=== PATIENT | female | born 1935 | race Caucasian/White ===

== ENCOUNTER → 2018-10-22 | Outpatient (CLI) | payer MEDICARE ==
[~2018-10-22] MED LIST: ASPI81CH PO; Coumadin5 MG PO; HYDACE5 PO; Lovenox120 MG/0.8 SC; MULVITMINF; NIAC500; TOCO400
== END ==
LOC: LAB SHORT 09:24 → LAB 09:24
DX: N39.0 Urinary tract infection, site not specified (principal)
CPT/HCPCS: 87077; 87086; 87186

== ENCOUNTER → 2020-08-01 | Outpatient (CLI) | payer MEDICARE | LOC: LAB SHORT 08:50 → LAB 08:50 | DX: R30.0 Dysuria (principal); Z88.0 Allergy status to penicillin | CPT/HCPCS: 87077; 87086; 87186 ==

== ENCOUNTER → 2020-08-24 | Outpatient (CLI) | payer MEDICARE ==
[2020-08-24 12:08] LABS: Source, Urine Clean Catch
[2020-08-24 12:43] LABS: Specific Gravity, Urine 1.005 (1.003-1.022)
[2020-08-24 12:44] LABS: Appearance, Urine Clear (Clear); Bilirubin, Urine Neg (Neg); Blood, Urine Neg (Neg); Color, Urine Yellow (P-Yellow); Glucose Qualitative, Urine Neg (Normal); Ketones, Urine Neg (Neg); Leukocyte Esterase, Urine Neg (Neg); Nitrite, Urine Neg (Neg); Protein, Urine Neg (Neg); Urobilinogen, Urine NORM (Normal)
== END | disposition home or self-care (01) ==
LOC: LAB SHORT 10:50 → LAB 10:50
PROVIDERS: Family Medicine
DX: R30.9 Painful micturition, unspecified (principal)
CPT/HCPCS: 81003; 87086

== ENCOUNTER → 2020-11-07 | Outpatient (CLI) | payer MEDICARE | LOC: LAB SHORT 11:40 → LAB 11:40 | DX: D48.5 Neoplasm of uncertain behavior of skin (principal); L57.0 Actinic keratosis; I78.1 Nevus, non-neoplastic; Z88.0 Allergy status to penicillin | CPT/HCPCS: 88305 ==

== ENCOUNTER → 2021-02-21 | Outpatient (CLI) | payer MEDICARE ==
[2021-02-21 15:15] LABS: Source, Urine Clean Catch
[2021-02-21 15:41] LABS: Appearance, Urine Cloudy (Clear); Color, Urine Yellow (P-Yellow); Leukocyte Esterase, Urine 2+ (Neg); Nitrite, Urine Pos (Neg)
[2021-02-21 15:42] LABS: Bacteria Few /hpf; Bilirubin, Urine Neg (Neg); Blood, Urine Trace (Neg); Glucose Qualitative, Urine Neg (Normal); Ketones, Urine Neg (Neg); Protein, Urine Neg (Neg); Red Blood Cells, Urine 0-2 /hpf (0-2); Squamous Epithelial Cells Few /hpf (Few); Urobilinogen, Urine NORM (Normal)
== END | disposition home or self-care (01) ==
LOC: LAB SHORT 15:05 → LAB 15:05
PROVIDERS: Family Medicine
DX: N39.0 Urinary tract infection, site not specified (principal); R31.9 Hematuria, unspecified
CPT/HCPCS: 81001

== ENCOUNTER 2022-09-01 17:52 | Observation (INO) | payer MEDICARE ==
[~2022-09-01] VITALS: Ht 165.1 cm; Wt 68.9 kg
[2022-09-01 18:28] LABS: BASOPHILS ABSOLUTE AUTO 0.06 K/mm3 (0.00-0.23); BASOPHILS PERCENT AUTO 1 % (0-2); EOSINOPHILS ABSOLUTE AUTO 0.54 K/mm3 (0.00-0.68); EOSINOPHILS PERCENT AUTO 11 % (0-6); Hematocrit 43.3 % (33.0-51.0); Hemoglobin 14.8 g/dL (11.5-16.0); IMMATURE GRAN ABSOLUTE AUTO 0.01 K/mm3 (0.00-0.10); IMMATURE GRAN PERCENT AUTO 0 % (0-1); LYMPHOCYTES ABSOLUTE AUTO 1.89 K/mm3 (0.84-5.20); LYMPHOCYTES PERCENT AUTO 39 % (21-46); MONOCYTES PERCENT AUTO 10 % (4-13); Mean Corpuscular HGB 32.7 pg (26.0-34.0); Mean Corpuscular HGB Conc 34.2 g/dL (31.5-36.5); Mean Corpuscular Volume 96 fL (80-100); Mean Platelet Volume 8.6 fL (9.1-12.4); NEUTROPHILS ABSOLUTE AUTO 1.91 K/mm3 (1.96-9.15); NEUTROPHILS PERCENT AUTO 39 % (41-73); Platelet Count 258 K/mm3 (150-400); RDW Coefficient Variation 12.8 % (11.7-14.2); RDW Standard Deviation 45.6 fL (35.1-46.3); Red Blood Cell Count 4.52 M/mm3 (3.80-5.20); White Blood Cell Count 4.91 K/mm3 (4.00-11.30)
[2022-09-01 18:46] LABS: Albumin, Blood 3.9 g/dL (3.4-5.0); Albumin/Globulin Ratio 1.1 (0.8-1.8); Bilirubin, Total 0.5 mg/dL (0.1-1.0); Bun/Creatinine Ratio 18.6 (12.0-20.0); Calcium, Blood 9.3 mg/dL (8.5-10.1); Creatinine, Blood 0.75 mg/dL (0.40-1.00); Globulin, Blood 3.6 g/dL (2.2-4.0); Total Protein, Blood 7.5 g/dL (6.4-8.2)
[2022-09-01 19:28] LABS: Source, Urine Straight Cath
[2022-09-01 19:42] LABS: International Normalized Ratio 0.97; Prothrombin Time Results 10.2 Sec (9.7-11.5)
[2022-09-01 20:00] LABS: Bilirubin, Urine Neg (Neg); Blood, Urine Neg (Neg); Glucose Qualitative, Urine Neg (Neg); Ketones, Urine Neg (Neg); Leukocyte Esterase, Urine Neg (Neg); Nitrite, Urine Neg (Neg); Protein, Urine Neg (Neg); Specific Gravity, Urine 1.005 (1.003-1.022); Urobilinogen, Urine NORM (Normal)
[2022-09-01 20:05] LABS: Appearance, Urine Clear (Clear); Color, Urine Yellow (P-Yellow)
[2022-09-01 20:27] LABS: U Amphetamine Screen Not Detected; U Barbituate Screen Not Detected; U Benzodiazapine Screen Not Detected; U Buprenorphine Screen Not Detected; U Cannabinoids Screen Not Detected; U Cocaine Screen Not Detected; U Methadone Screen Not Detected; U Methamphetamine Screen Not Detected; U Opiates Screen Not Detected; U Oxycodone Screen Not Detected; U Phencyclidine Screen Not Detected; U Propoxyphene Screen Not Detected
[2022-09-01 22:19] VITALS: BP 162/64
--- NOTE | 2022-09-01 22:31 | NUR ---
ADMIT NOTE 87 YR OLD FEMALE ADMITTED TO THE FLOOR FROM THE ED WITH DX OF STROKE. DISPLAYS EXPRESSIVE APHASIA, BUT NO NOTED LEFT OR RIGHT SIDE DEFICEIT, ABLE TO FOLLOW FINGER WITH EYES. VSS. SKIN COOL TO TOUCH. WARM BLANKETS AND HEAT PAD APPLIED. PLDT. ORIENTED TO CALL LIGHT. CALL LIGHT IN REACH. WILL CONTINUE TO MONITOR
--- NOTE | 2022-09-02 01:21 | NUR ---
WAS C/O SEVERE "LEG CRAMPS". MD NOTIFIED AND MD ORDERED REQUIP. 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 WILL MONITOR
[2022-09-02 03:16] VITALS: BP 114/52
--- NOTE | 2022-09-02 04:54 | NUR ---
PATIENT SAFETY TECH SUMMARY WAS ADMITTED EARLIER IN THE SHIFT WITH DX OF STROKE, VERBAL RESPONSE WAS WORD SALAD. FEW WORDS THAT SEEMED TO CORRELATE WITH QUESTIONS ASKED. MED TELE STARTED. HANDS AND FEET COLD TO TOUCH. WARM BLANKETS AND HEAT PAD APPLIED. PT EVENTUALLY WARMED UP. INTERMITTENT LEG CRAMPS, NOTIFIED AND ORDERED REQUIP AND FENTANYL - SEE MAR FOR DETAILS. NEURO CHECKS Q 4 HR. NO NOTED DEFICEITS. PUPILS SLOW TO REACT. VERBAL RESPONSE SHOWING A FWE MORE COHERENT WRDS, BUT STILL MOSTLY WORD SALAD. VOICED HEADACHE, MEDS GIVEN. RESTING QUIETLY AT THIS TIME. CALL LIGHT IN REACH. WILL CONTINUE TO MONITOR
[2022-09-02 06:18] LABS: BASOPHILS ABSOLUTE AUTO 0.05 K/mm3 (0.00-0.23); BASOPHILS PERCENT AUTO 1 % (0-2); EOSINOPHILS ABSOLUTE AUTO 0.41 K/mm3 (0.00-0.68); EOSINOPHILS PERCENT AUTO 7 % (0-6); Hematocrit 36.2 % (33.0-51.0); Hemoglobin 12.7 g/dL (11.5-16.0); IMMATURE GRAN ABSOLUTE AUTO 0.02 K/mm3 (0.00-0.10); IMMATURE GRAN PERCENT AUTO 0 % (0-1); LYMPHOCYTES ABSOLUTE AUTO 1.74 K/mm3 (0.84-5.20); LYMPHOCYTES PERCENT AUTO 28 % (21-46); MONOCYTES ABSOLUTE AUTO 0.58 K/mm3 (0.16-1.47); MONOCYTES PERCENT AUTO 9 % (4-13); Mean Corpuscular HGB 32.8 pg (26.0-34.0); Mean Corpuscular HGB Conc 35.1 g/dL (31.5-36.5); Mean Corpuscular Volume 94 fL (80-100); Mean Platelet Volume 8.5 fL (9.1-12.4); NEUTROPHILS ABSOLUTE AUTO 3.42 K/mm3 (1.96-9.15); NEUTROPHILS PERCENT AUTO 55 % (41-73); Platelet Count 233 K/mm3 (150-400); RDW Coefficient Variation 12.8 % (11.7-14.2); RDW Standard Deviation 43.9 fL (35.1-46.3); Red Blood Cell Count 3.87 M/mm3 (3.80-5.20); White Blood Cell Count 6.22 K/mm3 (4.00-11.30)
[2022-09-02 06:54] LABS: Alanine Aminotransfer (ALT/SGP 22 U/L (12-78); Albumin/Globulin Ratio 1.1 (0.8-1.8); Alk Phos 98 U/L (50-136); Anion Gap 5 mmol/L (6-16); Aspartate Aminotrans (AST/SGOT 20 U/L (12-37); Bilirubin, Total 0.8 mg/dL (0.1-1.0); Blood Urea Nitrogen 11 mg/dL (8-24); Bun/Creatinine Ratio 16.7 (12.0-20.0); CO2, Blood 24 mmol/L (21-32); Calcium, Blood 8.5 mg/dL (8.5-10.1); Chloride, Blood 105 mmol/L (98-108); Cholesterol 209 mg/dL (50-200); Creatinine, Blood 0.66 mg/dL (0.40-1.00); Globulin, Blood 2.8 g/dL (2.2-4.0); Glomerular Filtration Rate 84 (60-); Glucose, Blood 108 mg/dL (70-99); HDL Cholesterol 69 mg/dL (>39); LDL/HDL RATIO 1.7; Low Density Lipoprotein Chol 115 mg/dL (0-110); Potassium, Blood 3.9 mmol/L (3.5-5.5); Sodium, Blood 134 mmol/L (136-145); Total Protein, Blood 5.8 g/dL (6.4-8.2); Triglycerides 124 mg/dL (30-160); Very Low Density Lipoprot Chol 24 mg/dL (6-32)
[2022-09-02 08:50] VITALS: BP 106/63
[2022-09-02 15:47] VITALS: BP 128/63
--- NOTE | 2022-09-02 16:08 | NUR ---
SHIFT SUMMARY PT AWAKE DURING SHIFT REPORT. ADMITTED DURING THE NIGHT FOR POSSIBLE STROKE. SPEECH ORIGINALLY WORD SALAD WITH DIFFICULTY FINDING WORDS. SPEECH SLOWLY IMPROVING ALL MORNING AND THRU OUT THE DAY. MRI COMPLETED W/O ACUTE FINDINGS. ECHO DONE IN THIS AFTERNOON. DR ELLIS TO REVIEW ECHO IN AM, WHILE PT REMAINS TONIGHT FOR OBSERVATION. PT ABLE TO WORK WITH THERAPY THIS AM. UP TO BSC WITH 1P SBA AT START OF SHIFT, BUT NOW ABLE TO BE INDEPENDENT. PT'S NEIGHBOR IN A COUPLE OF TIMES, CHECKING ON PT AND BRINGING REQUESTED ITEMS. PT DENIES FURTHER NEEDS AT THIS TIME. POSSIBLE D/C TO HOME TOMORROW IF PT REMAINS STABLE. CALL LT IN REACH. ABLE TO MAKE NEEDS KNOWN.
[2022-09-02 20:54] VITALS: BP 130/65
[2022-09-03 04:00] VITALS: BP 129/58
--- NOTE | 2022-09-03 04:51 | NUR ---
STATION ENGINEER MAIN LINE SUMMARY NO ACUTE EVENTS THIS SHIFT. A&OX4. PATIENT EFFECTIVELY COMMUNICATES NEEDS. CLEAR SPEECH. VSS. RR EVEN AND UNLABORED ON RA. NO PAIN REPORTED THIS SHIFT. MRI AND ECHO RESULTS AVAILABLE. BED LOW AND LOCKED. CALL LIGHT WITHIN REACH. THIS RN WILL CONTINUE TO MONITOR.
[2022-09-03 07:46] VITALS: BP 116/52
[2022-09-03] MEDS ORDERED: ATOR40TA PO (11:18)
[2022-09-03] MEDS ORDERED: ROPI.25 PO (11:19)
[2022-09-03] MEDS ORDERED: PLAVIX75 MG PO (11:19)
--- NOTE | 2022-09-03 14:31 | NUR ---
Patient doing well today, PT stated pt is at baseline, no further PT needed. MD ordered discharge home. Pharmacist at bedside viewing new medications. Patient left unit at 1400.
== END 2022-09-03 14:04 | disposition home or self-care (01) ==
LOC: ER 17:52 → MEDS 21:51 → ENPENDDIS 09-03 11:12 → MEDS 09-03 14:04
PROVIDERS: Family Medicine; Student in an Organized Health Care Education/Training Program; ADMIT Internal Medicine
DX: G45.9 Transient cerebral ischemic attack, unspecified (principal)
CPT/HCPCS: 36415; 51701; 70450; 70496; 70498; 70551; 80053; 80061; 81003; 82947; 83036; 85025; 85610; 85730; 92523; 93005; 93010; 93306; 96372; 97110; 97112; 97116; 97162; 97166; 97530; 97535; 99285-25; A9270; G0378; J1650; J3010; Q9967

== ENCOUNTER 2023-07-21 12:45 | Day surgery (SDC) | payer MEDICARE ==
[~2023-07-21] VITALS: Ht 149.9 cm; Wt 61.2 kg
[~2023-07-21 12:45] MED LIST changes: +ATOR40TA PO; +Balanced Salt Epinephrine Irrigation Solution 500 mL IR SCH; +Lidocaine HCl/Pf 1% 5 ML VIAL XX SCH; +Moxifloxacin HCL 0.5 MG/0.1 ML 0.4MLSYR RIGHTEYE SCH; +NAPR220 PO; +NIAC500 PO; +NS 500 ML IV ONE; +PHENYLEPHRINE\\TROPICAMIDE\\TETRACAINE OPHTHALMIC DILATING SOLN RIGHTEYE PRN; +PLAVIX75 MG PO; +Povidone-Iodine 450 DROP/30 ML Solution RIGHTEYE SCH; +ROPI.25 PO; +Triamcinolone Inj Susp 40 MG / ML 1ML Vial ONE
[2023-07-21] MEDS ORDERED: NS 1,000 ML IV ONE (13:19)
[2023-07-21] MEDS ORDERED: Tetracaine HCl 0.5% Opth Soln 15 ml RIGHTEYE ONE (13:43)
[2023-07-21] MEDS ORDERED: Midazolam HCl 1MG / ML 2ML Vial ONE (13:46)
[2023-07-21] MEDS ORDERED: FentaNYL Citrate 50 MCG/ML 2 ML Injection ONE (13:46)
[2023-07-21 14:21] VITALS: BP 114/57
== END 2023-07-21 14:49 | disposition home or self-care (01) ==
LOC: ORSCSDS 12:45
PROVIDERS: Ophthalmology
PROC: 08RJ3JZ Replacement of Right Lens with Synthetic Substitute, Percutaneous Approach (ICD-10-PCS; principal; 2023-07-21 14:00)
DX: H25.811 Combined forms of age-related cataract, right eye (principal); I10 Essential (primary) hypertension; Z86.73 Personal history of transient ischemic attack (TIA), and cerebral infarction without residual deficits; Z79.82 Long term (current) use of aspirin; Z79.02 Long term (current) use of antithrombotics/antiplatelets; Z79.899 Other long term (current) drug therapy
CPT/HCPCS: J2250; J3010; J3301; J7040; V2632